=== PATIENT | male | born 1985 | race Caucasian/White ===

== ENCOUNTER 2016-09-13 18:28 | Emergency (ER) | payer OTHER ==
[~2016-09-13] VITALS: Ht 167.6 cm; Wt 89.5 kg
[~2016-09-13 18:28] MED LIST: ESCI5TAB PO; FEXO180T61 PO; LORA1TAB PO
[2016-09-13 18:33] VITALS: Ht 167.6 cm; Wt 89.5 kg
[2016-09-13] MEDS ORDERED: clonAZEPAM 0.5 MG TAB PO ONE (20:00)
[2016-09-13] MEDS ORDERED: IBUP-1542 PO (20:04)
--- NOTE | 2016-09-13 20:12 | ERD ---
ER Documentation Chief Complaint Date/Time DATE: 09/13/16 TIME: 20:07 Chief Complaint chest pain x 1 hour. hx of anxiety HPI 31-year-old female with history of anxiety to ED complaining of chest pain 1 hour. Patient stated that he feels pressure in his chest. This feels very much like his previous anxiety attacks. Patient stated that he was prescribed clonazepam while he was in [place]. Clonazepam has helped to relieve his anxiety attacks. He would like to get the refill. Denies shortness of breath. Denies diaphoresis. Denies fever or chills. Denies headache. ROS All systems reviewed and are negative except as per history of present illness. Medications Home Meds Active Scripts Ibuprofen* (Motrin*) 600 Mg Tab, 600 MG PO Q6H Y for PAIN AND OR ELEVATED TEMP, #30 TAB Prov:AMERICA HUNT EXTRUSION SUPERVISOR 09/13/16 Escitalopram Oxalate* (Lexapro*) 5 Mg Tablet, 5 MG PO DAILY, #30 TAB 1 Refill Prov:EDILBERTO WEST PA-C 02/02/16 Lorazepam* (Lorazepam*) 1 Mg Tablet, 1 MG PO Q8, #10 TAB Prov:MANISH GUERRERO PA-C 09/14/15 Fexofenadine Hcl* (Caroline*) 180 Mg Tablet, 180 MG PO DAILY, #30 TAB Prov:GERALD CRANE MD 08/29/15 Allergies Allergies: Coded Allergies: No Known Drug Allergies (Verified Allergy, Unknown, 09/13/16) PMhx/Soc History of Surgery: Yes (scoliosis with rods) Anesthesia Reaction: No Hx Neurological Disorder: No Hx Respiratory Disorders: No Hx Cardiac Disorders: No Hx Psychiatric Problems: Yes (Anxiety) Hx Miscellaneous Medical Probl: Yes (anxiety) Hx Alcohol Use: No Hx Substance Use: No Hx Tobacco Use: No Smoking Status: Never smoker Physical Exam Vitals Vital Signs Date Time Temp Pulse Resp B/P Pulse Ox O2 Delivery O2 Flow Rate FiO2 09/13/16 18:33 99.1 98 20 135/90 97 Physical Exam General: Well-developed, well-nourished, conscious and coherent, in no distress Skin: Warm and dry without rash, good texture and turgor Head: Normocephalic without evidence of trauma Eyes: Sclera and conjunctivae normal; pupils equal, round, and reactive to light; extraocular movements are intact Neck: Supple without meningismus or adenopathy. Carotids are equal. Trachea midline. No bruits or JVD Chest: Normal AP diameter. Good expansion without retractions. Lungs are clear to auscultate bilaterally with good tidal volume. Anterior chest wall tenderness to palpation. Heart: Regular rate and rhythm. No murmur, rub, or gallops heard Abdomen: Soft and nontender without masses, guarding, or rebound. Bowel sounds are active. No hepatosplenomegaly Extremities: Full range of motion. Good strength bilaterally. No clubbing, cyanosis, or edema. Peripheral pulses are intact. Sensation intact Neuro: Alert and oriented 4, GCS 15. Cranial nerves grossly intact. Motor and sensory exams nonfocal. Moves all extremities. Speech clear. Gait normal Results 24 hrs Current Medications Medications (Trade) Dose Ordered Sig/Taj Route PRN Reason Start Time Stop Time Status Last Admin Dose Admin Clonazepam (Klonopin) 1 mg ONCE ONCE PO 09/13/16 20:00 09/13/16 20:01 DC 09/13/16 19:54 Procedures/MDM Well-appearing 31-year-old male with history exactly complaining of chest pain 1 hour. EKG: Normal sinus rhythm rate 93 bpm, normal axis. No ST segment elevation or depression. No ectopic beats. No QT prolongation. No other EKG abnormalities. EKG read by Dr. De La Fuente. There is no change compared to previous EKGs on record. Low suspicion for acute coronary syndrome, aortic dissection, pneumonia, pneumothorax, or PE. Patient has reproducible chest wall tenderness to palpation. Likely patient chest pain was from costochondritis. Patient given clonazepam 1 mg p.o. in the ED. I advised patient that I cannot provide him with any prescriptions. He will need to see a PCP for prescriptions. I also advised patient to seek counseling from a psychologist to help he identify the cause of his anxiety and ways to cope with them. Patient appears well, stable for discharge and outpatient management. Medical decision making shared with patient and family. Education provided to patient and family. Patient and family expressed understanding of the plan. Medications on discharge: Ibuprofen. Follow-up: Primary care provider in 2-3 days or return to ED if worse. Departure Diagnosis: Primary Impression: Anxiety Additional Impression: Chest wall pain Condition: Stable Patient Instructions: Your Body's Response to Anxiety, Chest Wall Pain, Costochondritis [facility] Usted se peck hecho un examen mdico de control que le indica que no est en mani condicin que requiera tratamiento urgente en el Departamento de Emergencia. Un estudio ms profundo y el tratamiento de pineda condicin pueden esperar sin ningn riesgo hasta que usted sea atendida/o en el consultorio de pineda mdico o mani cl fernando. Es responsabilidad suya arreglar mani william para el seguimiento del missy. MANEJO DE CONDICIONES NO URGENTES EN EL FUTURO 1) Si usted tiene un mdico de atencin primaria: Usted debera llamar a pindea mdico de atencin primaria antes de venir al departamento de emergencia. Despus de las horas de consultorio, pineda doctor o pineda asociado/a est disponible por telfono. El mdico o enfermero de rodney en el servicio telefnico puede asesorarle por sonya medio para atender el problema, o missy contrario se puede programar mani william. 2) Si usted no tiene un mdico de atencin primaria: Llame al mdico o clnica de referencia que aparece abajo keily las horas de consultorio para hacer mani william para que le vean. CLINICAS: [facility] [phone] [facility] [address] [facility] [phone] [facility] [phone] [facility] [facility] [phone] [facility] [phone] [id number] [facility]. [phone] [address] Additional Instructions: Call your primary care doctor TOMORROW for an appointment during the next 2-3 days.See the doctor sooner or return here if your condition worsens before your appointment time. AMERICA HUNT. JOSE Sep 13, 2016 20:11
[2016-09-13 20:13] VITALS: BP 127/72; PULSE 83; RESP 20; TEMP 99.1
== END 2016-09-13 20:05 | disposition home or self-care (01) ==
LOC: FTE 18:28
DX: F41.9 Anxiety disorder, unspecified (principal)
CPT/HCPCS: 93005; Z7610

== ENCOUNTER 2018-07-17 18:45 | Emergency (ER) | payer OTHER ==
[~2018-07-17] VITALS: Wt 96.1 kg
[~2018-07-17 18:45] MED LIST changes: +IBUP-1542 PO
--- NOTE | 2018-07-17 19:11 | ERD ---
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 no diaphoresis HPI During the patient's encounter translation services were utilized Language: Israeli Source: Family in person 33-year-old male history of anxiety who presents the emergency room feeling not well after taking Flexeril. He has chronic back issues related to scoliosis. He was having a back spasm and took a Flexeril. He states that he took 2 tablets when he does not usually take this medication. Patient started to feel anxious, felt tightness in his chest and his entire body. He states symptoms are improving at this time. He did have some mild numbness and tingling to all 4 extremities. He denies any chest pressure, no exertional symptoms no fevers or chills, no pleuritic pain. ROS All systems reviewed and are negative except as per history of present illness. Medications Home Meds Active Scripts Ibuprofen* (Motrin*) 600 Mg Tab, 600 MG PO Q6H PRN for PAIN AND OR ELEVATED TEMP, #30 TAB Prov:AMERICA HUNT NP 09/13/16 Escitalopram Oxalate* (Lexapro*) 5 Mg Tablet, 5 MG PO DAILY, #30 TAB 1 Refill Prov:EDILBERTO WEST PA-C 02/02/16 Lorazepam* (Lorazepam*) 1 Mg Tablet, 1 MG PO Q8, #10 TAB Prov:MANISH GUERRERO PA-C 09/14/15 Fexofenadine Hcl* (Caroline*) 180 Mg Tablet, 180 MG PO DAILY, #30 TAB Prov:GERALD CRANE MD 08/29/15 Allergies Allergies: Coded Allergies: No Known Drug Allergies (Verified Allergy, Unknown, 09/13/16) PMhx/Soc History of Surgery: Yes (scoliosis with rods) Anesthesia Reaction: No Hx Neurological Disorder: No Hx Respiratory Disorders: No Hx Cardiac Disorders: No Hx Psychiatric Problems: Yes (Anxiety) Hx Miscellaneous Medical Probl: Yes (anxiety) Hx Alcohol Use: No Hx Substance Use: No Hx Tobacco Use: No FmHx Family History: No diabetes Physical Exam Vitals Vital Signs Date Temp Pulse Resp B/P (MAP) Pulse Ox O2 O2 Flow FiO2 Time Delivery Rate 07/17/18 98.0 96 20 135/78 98 18:50 (97) Physical Exam General: Well developed, well nourished, no acute distress Head: Normocephalic, atraumatic. Eyes: Pupils equally reactive, EOM intact ENT: Moist mucous membranes Neck: Supple, no lymphadenopathy Respiratory: Lungs clear bilaterally, no distress Cardiovascular: RRR, no murmurs, rubs, or gallops Abdominal: Soft, non-tender, non-distended, no peritoneal signs : Deferred MSK: No edema, no unilateral swelling, 5/5 strength Neurologic: Alert and oriented, moving all extremities, normal speech, no focal weakness, no cerebellar signs Skin: No rash Psych: Normal mood Procedures/MDM EKG: I reviewed and interpreted a 12-lead EKG. Rhythm: Normal sinus rhythm ST Changes: No contiguous ST segment elevations T waves: No contiguous T wave inversions Impression: No evidence of acute cardiac ischemia The patient symptoms are likely secondary to adverse medication reaction without signs or symptoms concerning for overdose or toxidrome. Patient is anxious and has a history of anxiety which is likely contributing to his presentation. His presentation is absolutely not consistent with acute coronary syndrome, no exertional symptoms, better alternative diagnosis, no significant risk factors. No signs or symptoms concerning for pulmonary embolism, dissection. Patient provided with reassurance, advised to stop Flexeril and follow-up with primary care physician. The patient does not have an identifiable emergent medical condition that warrants inpatient hospitalization at this time. The patient is deemed safe for discharge with outpatient follow-up. We discussed follow up with the patient's primary care doctor within 24 to 48 hours as needed. We also discussed return to the emergency room for worsening symptoms or worsening condition. Outpatient referral: None required Discharge Medications: None required Departure Diagnosis: Primary Impression: Anxiety reaction Additional Impression: Adverse drug reaction Encounter type: initial encounter Qualified Codes: T50.905A - Adverse effect of unspecified drugs, medicaments and biological substances, initial encounter Condition: Stable Patient Instructions: Anxiety Reaction Additional Instructions: Stop taking flexeril. Follow with PMD as needed. Use anxiety medication as directed and as needed. Llame al doctor mookie oliveira (Referral Sources) MAANA y eliezer garry SITA PARA DENTRO DE GARRY SEMANA. Dgale a la secretaria que nosotros le instruimos hacer esta sita.Avise o llame si pineda condicin se empeora antes de la sita. ENRICO DAMIAN MD Jul 17, 2018 19:11
[2018-07-17 19:52] VITALS: BP 116/87; PULSE 80; RESP 18
== END 2018-07-17 19:55 | disposition home or self-care (01) ==
LOC: E/R 18:45
DX: F41.9 Anxiety disorder, unspecified (principal); T48.1X5A Adverse effect of skeletal muscle relaxants [neuromuscular blocking agents], initial encounter; R07.9 Chest pain, unspecified
CPT/HCPCS: 82962; 93005; Z7502